=== PATIENT | male | born 1980 | race Caucasian/White ===

== ENCOUNTER 2016-11-29 23:58 | Emergency (ER) | payer SELFPAY ==
[~2016-11-29] VITALS: Ht 180.3 cm; Wt 81.6 kg
--- NOTE | 2016-11-30 01:27 | NUR ---
Security called multiple times prior to triage due to patient obstructing doors, making a mess in the waiting room restroom, and ignoring staff when asked to move or wait in another location.
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
--- NOTE | 2016-11-30 01:30 | NUR ---
Patient arguing with ERMD while he is attempting to perform MSE. Security at bedside for safety.
--- NOTE | 2016-11-30 01:35 | NUR ---
Patient repeatedly asking for linen to be changed on bed each time he gets up. He points at the bed and states "that dirt is not from me" as he indicates where his shoes were just lying on the bed.
--- NOTE | 2016-11-30 01:38 | NUR ---
Patient initially refused urine specimen stating that we were not treating his complaints. When informed that the urine sample was to perform tests that the ERMD had ordered to address his complaints he stated he would provide a sample. Patient initially given a urinal to which he refused stating he wanted to use a restroom. Patient was instructed to follow staff to restroom at which time the patient began walking the opposite way. Patient redirected at which time he became argumentative with staff and demanded to take his backpack into the restroom while providing urine sample.
--- NOTE | 2016-11-30 01:45 | NUR ---
Patient refusing blood draw. Patient states "they are not treating me, I told them I have a rash and they told me I have Hepatitis." Education provided regarding ruling out and performing tests. Patient then stated "I will let him draw my blood if my sheet is clean" while sitting on the bed. Staff changed the sheet again at the patient's request and he consented to blood draw.
--- NOTE | 2016-11-30 01:57 | NUR ---
Patient argumentative with staff. I walked in to the room to inform him that we would await the results of the tests the MD ordered at which time the patient stated "well you're not my nurse so tell my nurse to come in." Patient closed curtain and attempted to close the door on staff. Patient heard going through drawers in the room. Security contacted for safety.
--- NOTE | 2016-11-30 01:59 | NUR ---
Patient eloped from facility. ER physician notified.
[2016-11-30 02:18] LABS: BASOPHILS # (AUTO) 0.3 K/uL (0.0-0.2); BASOPHILS % (AUTO) 2.1 % (0.0-2.0); EOSINOPHILS # (AUTO) 0.8 K/uL (0.0-0.7); EOSINOPHILS % (AUTO) 6.2 % (0.0-7.0); HEMATOCRIT 45.5 % (40.0-50.0); HEMOGLOBIN 16.1 g/dL (14.0-18.0); LYMPHOCYTES # (AUTO) 2.7 K/uL (0.8-4.8); LYMPHOCYTES % (AUTO) 21.2 % (20.5-51.5); MEAN CORPUSCULAR HEMOGLOBIN 33.7 uug (27.0-31.0); MEAN CORPUSCULAR HGB CONC 36 g/dL (32.0-37.0); MONOCYTES % (AUTO) 7.7 % (0.0-11.0); NEUTROPHILS # (AUTO) 8.1 K/uL (1.8-8.9); NEUTROPHILS % (AUTO) 62.8 % (38.5-71.5); PLATELET COUNT (AUTO) 263 K/uL (150-450); RED BLOOD CELL COUNT(AUTO) 4.79 MIL/uL (4.70-6.10); RED CELL DISTRIBUTION WIDTH 12.3 % (11.5-14.5); WHITE BLOOD COUNT (AUTO) 12.9 K/uL (4.0-11.2)
[2016-11-30 02:31] LABS: ALBUMIN 4.2 g/dL (3.4-5.0); BILIRUBIN,TOTAL 0.6 mg/dL (0.2-1.0); CALCIUM 8.9 mg/dL (8.5-10.1); TOTAL PROTEIN, SERUM 7.6 g/dL (6.4-8.2)
[2016-11-30 02:32] LABS: *AMPHETAMINE, URINE NEGATIVE (NEGATIVE); *BARBITURATE, URINE NEGATIVE (NEGATIVE); *CANNABINOID, URINE POSITIVE (NEGATIVE); *COCCAINE, URINE NEGATIVE (NEGATIVE); *OPIATE, URINE NEGATIVE (NEGATIVE); *PHENCYCLIDINE SCREEN,URINE NEGATIVE (NEGATIVE)
== END 2016-11-30 02:05 | disposition left against medical advice (07) ==
LOC: ER 11-30
DX: R21 Rash and other nonspecific skin eruption (principal); R42 Dizziness and giddiness
CPT/HCPCS: 36415; 80053; 80307; 83690; 85025; 85651; 86140; 99284; A4663

== ENCOUNTER 2021-01-25 15:23 | Emergency (ER) | payer SELFPAY ==
[~2021-01-25] VITALS: Ht 175.3 cm; Wt 81.6 kg
--- NOTE | 2021-01-25 15:47 | NUR ---
PT IS IN ROOM #1B. DR JACOBS EVALUATED THE PT.
--- NOTE | 2021-01-25 16:00 | NUR ---
Incident reported to fluoroscope operator# [phone] on the [employer] non-emergency line and she stated she will dispatch officers to come speak to the patient.
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
== END 2021-01-25 16:58 | disposition left against medical advice (07) ==
LOC: ER 15:29
DX: T76.21XA Adult sexual abuse, suspected, initial encounter (principal); Z59.0 Homelessness; Z86.73 Personal history of transient ischemic attack (TIA), and cerebral infarction without residual deficits
CPT/HCPCS: A4663